=== PATIENT | female | born 1995 | race American Indian/Alaskan Native ===

== ENCOUNTER 2021-10-26 19:03 | Emergency (ER) | payer BC ==
[2021-10-26] MEDS ORDERED: hydrALAZINE 25 MG TAB PO ONE (23:42)
[2021-10-26] MEDS ORDERED: MECLIZINE 25 MG TAB PO ONE (23:42)
[2021-10-27 00:29] LABS: Hemoglobin 13.6 gm/dl (10.1-14.3); Mean Corpuscular HGB Conc 33 % (30-34); Mean Corpuscular Volume 91 fl (79-97); Platelet Count 282 K/mm3 (140-440); Red Blood Count 4.48 M/mm3 (3.65-5.03); Red Cell Distribution Width 13.5 % (13.2-15.2)
[2021-10-27 01:18] LABS: Alanine Aminotransferase 13 units/L (7-56); Albumin 4.8 g/dL (3.9-5); Blood Urea Nitrogen 11 mg/dL (7-17); Calcium 9.5 mg/dL (8.4-10.2); Hemolysis Index 3
[2021-10-27 01:24] LABS: BUN/Creatinine Ratio 18
[2021-10-27 01:49] LABS: Anisocytosis 1+; Band Neutrophils # (Manual) 0.1 K/mm3; Basophils % (Manual) 0 % (0.0-1.8); Eosinophils % (Manual) 0 % (0.0-4.3); Platelet Estimate Consistent w Auto; Total Cells Counted 100
[2021-10-27 02:08] VITALS: BP 143/94
--- NOTE | 2021-10-27 02:19 | Emergency Department Report ---
ED General Adult HPI - General Chief complaint: Dizziness Stated complaint: HIGH BLOOD PRESSURE/DIZZY Source: patient Mode of arrival: Ambulatory Limitations: No Limitations - History of Present Illness Initial comments: Patient is a 26-year-old -[place]iqu[place] female with a history of hypertension who is not on any medications presents to the ED with complaint of acute onset persistent headache, elevated blood pressure, lightheadedness and dizziness for the last 4 days. Patient states that the symptoms have been persistent and appear to be getting worse. Patient states that her blood pressures been elevated even at home. Patient denies syncope, nausea and vomiting, chest pain, shortness of breath, fever, chills, cough, neck pain, change in vision, abdominal pain or palpitations. MD Complaint: Elevated blood pressure, headache, lightheadedness and dizziness -: Sudden, days(s) (4) Location: head Radiation: non-radiation Severity scale (0 -10): 6 Quality: aching, sharp Consistency: constant Improves with: none Worsens with: none Associated Symptoms: denies other symptoms, headaches, other (Lightheadedness and dizziness). denies: confusion, cough, diaphoresis, fever/chills, loss of appetite, malaise, rash, seizure, shortness of breath, syncope, weakness Treatments Prior to Arrival: none - Related Data Previous Rx's Medication Instructions Recorded Last Taken Type Ibuprofen [Motrin] 800 mg PO Q8HR PRN #30 tablet 10/27/21 Unknown Rx Meclizine HCl 25 mg PO Q8H PRN #30 tab 10/27/21 Unknown Rx amLODIPine 10 mg PO DAILY #30 tab 10/27/21 Unknown Rx Allergies Allergy/AdvReac Type Severity Reaction Status Date / Time No Known Allergies Allergy Unverified 10/26/21 23:01 ED Review of Systems ROS: Stated complaint: HIGH BLOOD PRESSURE/DIZZY Other details as noted in HPI Constitutional: other (Elevated blood pressure). denies: chills, fever Eyes: denies: eye pain, eye discharge, vision change ENT: denies: ear pain, throat pain Respiratory: denies: cough, shortness of breath, wheezing Cardiovascular: denies: chest pain, palpitations, dyspnea on exertion, orthopnea, syncope, paroxysmal nocturnal dyspnea Endocrine: no symptoms reported Gastrointestinal: denies: abdominal pain, nausea, vomiting, diarrhea Genitourinary: denies: urgency, dysuria, discharge Musculoskeletal: denies: back pain, joint swelling, arthralgia Skin: denies: rash, lesions Neurological: headache, other (Lightheadedness and dizziness). denies: weakness, paresthesias Psychiatric: denies: anxiety, depression Hematological/Lymphatic: denies: easy bleeding, easy bruising ED Past Medical Hx - Past Medical History Previous Medical History?: Yes Hx Hypertension: Yes - Surgical History Past Surgical History?: No - Social History Smoking Status: Never Smoker Substance Use Type: None - Medications Home Medications: Home Medications Medication Instructions Recorded Confirmed Last Taken Type Ibuprofen [Motrin] 800 mg PO Q8HR PRN #30 tablet 10/27/21 Unknown Rx Meclizine HCl 25 mg PO Q8H PRN #30 tab 10/27/21 Unknown Rx amLODIPine 10 mg PO DAILY #30 tab 10/27/21 Unknown Rx ED Physical Exam - General Limitations: No Limitations General appearance: alert, in no apparent distress - Head Head exam: Present: atraumatic, normocephalic, normal inspection - Eye Eye exam: Present: normal appearance, PERRL, EOMI Pupils: Present: normal accommodation - ENT ENT exam: Present: normal exam, normal orophraynx, mucous membranes moist, TM's normal bilaterally, normal external ear exam - Neck Neck exam: Present: normal inspection, full ROM. Absent: tenderness - Respiratory Respiratory exam: Present: normal lung sounds bilaterally. Absent: respiratory distress, wheezes, rales, rhonchi, stridor, chest wall tenderness, accessory muscle use, decreased breath sounds, other - Cardiovascular Cardiovascular Exam: Present: normal rhythm, tachycardia, normal heart sounds. Absent: systolic murmur, diastolic murmur, rubs, gallop - GI/Abdominal GI/Abdominal exam: Present: soft, normal bowel sounds. Absent: tenderness, hyperactive bowel sounds, hypoactive bowel sounds, organomegaly - Extremities Exam Extremities exam: Present: normal inspection, full ROM, normal capillary refill - Back Exam Back exam: Present: normal inspection, full ROM. Absent: tenderness, CVA tenderness (R), CVA tenderness (L), muscle spasm, paraspinal tenderness, vertebral tenderness, rash noted - Neurological Exam Neurological exam: Present: alert, oriented X3, CN II-XII intact, normal gait, reflexes normal - Psychiatric Psychiatric exam: Present: normal affect, normal mood, anxious - Skin Skin exam: Present: warm, dry, intact, normal color. Absent: rash ED Course Vital Signs 10/26/21 10/27/21 22:52 02:07 Temperature 98.5 F Pulse Rate 100 H 81 Respiratory 16 18 Rate Blood Pressure 166/107 Blood Pressure 143/94 [Left] O2 Sat by Pulse 99 100 Oximetry ED Medical Decision Making - Lab Data Result diagrams: 10/26/21 23:50 10/26/21 23:50 - Radiology Data Radiology results: report reviewed, image reviewed Chest x-ray showed no acute cardiopulmonary abnormalities or pneumonitis. - Medical Decision Making This is a 26-year-old -Martiniquais female with a history of hypertension who is not on any medications presents to the ED with complaint of acute onset persistent headache, elevated blood pressure, lightheadedness and dizziness for the last 4 days. Patient states that the symptoms have been persistent and ap pear to be getting worse. Patient states that her blood pressures been elevated even at home. In the ED, patient is alert and oriented x3 and is not in any distress but tachycardic, anxious and hypertensive. Lab test results were reviewed and are all nonactionable including troponin levels. Chest x-ray showed no acute cardiopulmonary abnormalities or pneumonitis. Patient was treated hypertension in the ED. Orthostatic vital signs are stable. On reevaluation, patient's hypertension improved significantly. Patient was discharged home on new hypertension medication amlodipine 10 mg daily and was advised to follow-up with her primary care physician in 7 to 10 days for reevaluation. Patient is advised return to the ED immediately if symptoms get worse. - Differential Diagnosis Uncontrolled hypertension; anxiety; dehydration; ACS; Critical care attestation.: If time is entered above; I have spent that time in minutes in the direct care of this critically ill patient, excluding procedure time. ED Disposition Clinical Impression: Uncontrolled stage 2 hypertension, Dizziness and giddiness Acute tension headache Qualifiers: Intractability: not intractable Qualified Code(s): G44.209 - Tension-type headache, unspecified, not intractable Disposition: 01 HOME / SELF CARE / HOMELESS Is pt being admited?: No Does the pt Need Aspirin: No Condition: Stable Instructions: Tension Headache, Adult, [id number], Hypertension, Adult, [id number], Dizziness, [id number], Hypertension (ED) Additional Instructions: All lab test results were reviewed and are all nonactionable. Chest x-ray showed no acute cardiopulmonary abnormalities or pneumonitis. Therefore take medications with food, drink plenty of fluids and follow-up with your primary care physician in 7 to 10 days for reevaluation. Return to the ED immediately if symptoms get worse. Prescriptions: amLODIPine 10 mg PO DAILY #30 tab Meclizine HCl 25 mg PO Q8H PRN #30 tab PRN Reason: dizziness Ibuprofen [Motrin] 800 mg PO Q8HR PRN #30 tablet PRN Reason: Pain , Severe (7-10) Referrals: JAME GRAYSON MD. [Other] - 3-5 Days Time of Disposition: 02:22 Print Language: OCCITAN
--- NOTE | 2021-10-29 15:16 | XRay Report ---
CHEST 1 VIEW INDICATION / CLINICAL INFORMATION: elevated BP, Dizziness, lightheadedness. COMPARISON: None available. FINDINGS: SUPPORT DEVICES: None. HEART / MEDIASTINUM: No significant abnormality. LUNGS / PLEURA: No significant pulmonary or pleural abnormality. No pneumothorax. ADDITIONAL FINDINGS: No significant additional findings. IMPRESSION: 1. No active cardiopulmonary disease. Signer Name: Alan Valdes II, MD Signed: 10/27/2021 12:26 AM Workstation Name: [id number]
== END 2021-10-27 03:11 | disposition home or self-care (01) ==
LOC: ED 19:03
DX: I10 Essential (primary) hypertension (principal); R42 Dizziness and giddiness; G44.209 Tension-type headache, unspecified, not intractable
CPT/HCPCS: 36415; 71045; 80053; 84484; 85007; 85025; 99284